=== PATIENT | female | born 1995 | race Caucasian/White ===

== ENCOUNTER 2018-12-26 05:15 | Emergency (ER) | payer OTHER, MEDICAID ==
[~2018-12-26] VITALS: Ht 162.6 cm; Wt 95.1 kg
[~2018-12-26 05:15] MED LIST: ABILIFY20 MG; AMOXICILLIN875 MG PO; BIRTH CONTROL; CELEXA; DULCOLAX5 MG PO; HYOSCYAMINE0.375 M2 PO; IBUPROFEN 600600 M1 PO; LEXAPRO 10 MG T10 M2 PO; MOTION RELIEF25 MG PO; PREDNISONE 20 M20 M1 PO; PROAIR HFA8.5 GM INH; RISPERDAL 1 MG T1 MG; TESSALON PERLE100 MG PO
[2018-12-26 05:24] VITALS: BP 128/71
== END 2018-12-26 05:49 | disposition home or self-care (01) ==
LOC: M.ERS 05:15
DX: M25.521 Pain in right elbow (principal); Z88.2 Allergy status to sulfonamides

== ENCOUNTER 2019-01-12 21:29 | Inpatient (IN) | payer OTHER, MEDICAID ==
[~2019-01-12] VITALS: Ht 162.6 cm; Wt 104.9 kg
[2019-01-12 21:47] VITALS: BP 138/90
[2019-01-13 00:48] LABS: ABSOLUTE BASOPHILS 0.1 thou/uL (0.0-0.2); ABSOLUTE EOSINOPHILS 0.1 thou/uL (0.0-0.7); ABSOLUTE LYMPHOCYTES 1.7 thou/uL (0.8-5.3); ABSOLUTE MONOCYTES 0.7 thou/uL (0.0-1.2); ABSOLUTE NEUTROPHILS 8.8 thou/uL (1.6-8.1); BASOPHILS 0.8 %; HEMATOCRIT 39.8 % (37.0-47.0); HEMOGLOBIN 13.5 gm/dL (12.0-15.0); LYMPHOCYTES 15.1 %; MCH 29.9 pg (26.0-34.0); MCV 87.9 fL (80.0-100.0); MONOCYTES 5.9 %; MPV 8.7 fl. (7.2-11.1); NUCLEATED RBCS 0 /100WBC; PLATELET COUNT* 254 thou/uL (150-400); POLYS 77.2 %; RBC 4.52 mil/uL (4.20-5.00); WBC 11.4 thou/uL (4.0-11.0)
[2019-01-13 00:52] LABS: CALCIUM 9.4 mg/dL (8.5-10.1)
[2019-01-13 00:57] LABS: ALBUMIN 3.6 g/dL (3.4-5.0); TOTAL BILIRUBIN 0.5 mg/dL (<0.1-1.0); TOTAL PROTEIN 7.8 g/dL (6.4-8.2)
[2019-01-13 03:06] VITALS: BP 137/66
[2019-01-13 03:15] VITALS: BP 133/55
[2019-01-13 08:30] VITALS: BP 140/76
[2019-01-13 09:20] LABS: INFLUENZA A ANTIGEN Negative (Negative); INFLUENZA B ANTIGEN Negative (Negative)
[2019-01-13 16:00] VITALS: BP 150/91
--- NOTE | 2019-01-13 17:18 | NUR ---
PATIENT RESTING IN BED. PATIENT IS UP AD DAMARIS IN ROOM. PATIENT UPSET THIS AFTERNOON THAT SHE STILL FEELS SHORT OF BREATH AND IS PAINFUL TO TAKE DEEP BREATHS, DR GUTIERREZ NOTIFIED AND ORDERS RECEIVED. PATIENT REASSURED AND ORDERS IMPLEMENTED. PATIENT IS ON ROOM AIR WITH OXYGEN SATS 93-95%. PATIENT HAS FAIR APPETITE. PATIENT DENIES ANY NEEDS AT THIS TIME. CALL LIGHT WITHIN REACH.
[2019-01-14] VITALS: BP 139/95
--- NOTE | 2019-01-14 04:29 | NUR ---
PATIENT SLEPT WELL DURING THIS SHIFT. PT C/O MUSCLES IN CHEST AND STOMACH HURTING FROM COUGHING. TYLENOL W/CODEINE GIVEN AT HS AND TORADOL IV GIVEN LATER. PT WITH MANY QUESTIONS ABOUT HER HEALTH. PT UP TO BATHROOM WITH SLOW STEADY GAIT. RT PUT PT ON O2 @ 3 LITERS PER NASAL CANNULA WHEN PT'S O2 SATS WERE BELOW 90%. PT ABLE TO GET SOME SLEEP WHEN NOT COUGHING. FLUIDS INFUSING PER ORDER. WILL CONTINUE TO MONITOR.
[2019-01-14 08:30] VITALS: BP 152/89
[2019-01-14 11:49] LABS: HEMATOCRIT 36.9 % (37.0-47.0); HEMOGLOBIN 12.5 gm/dL (12.0-15.0); MCH 30.4 pg (26.0-34.0); MCHC 33.7 g/dL (28.0-37.0); MPV 9.1 fl. (7.2-11.1); NUCLEATED RBCS 0 /100WBC; PLATELET COUNT* 285 thou/uL (150-400); RDW-CV 13.2 % (10.5-14.5); WBC 22.6 thou/uL (4.0-11.0)
[2019-01-14 12:00] LABS: CALCIUM 9.4 mg/dL (8.5-10.1); CREATININE 0.9 mg/dL (0.6-1.3); POTASSIUM 4.1 mmol/L (3.5-5.1)
[2019-01-14 12:21] LABS: ABSOLUTE LYMPHOCYTES 0.9 thou/uL (0.8-5.3); ABSOLUTE MONOCYTES 0.2 thou/uL (0.0-1.2); ABSOLUTE NEUTROPHILS 21.5 thou/uL (1.6-8.1); PLATELET ESTIMATE ADEQUATE
[2019-01-14 17:09] VITALS: BP 152/100
--- NOTE | 2019-01-14 17:25 | NUR ---
PATIENT RESTING IN BED. PATIENT HAS HAD COMPLAINTS OF RIB PAIN, TREATED ADEQUATELY WITH FLEXERIL. PATIENT HAS SLEPT MOST OF DAY. PATIENT IS UP AD DAMARIS TO BATHROOM. PATIENT HAS OXYGEN ON AT 3L/NC. PATIENT SEEN BY DR REILLY THIS AM. PATIENT HAS BEEN AGREEABLE TO NEW MEDICATIONS. CHEST X-RAY THIS AM. PATIENT DENIES ANY NEEDS AT THIS TIME. CALL LIGHT WITHIN REACH.
--- NOTE | 2019-01-15 05:58 | NUR ---
PATIENT PLACED ON HIGH FLOW CANNULA AT 12LITERS AT BEGINNING OF SHIFT BY RT. PT'S LUNGS WITH COURSE SOUNDS WITH FINE CRACKLES. FLUIDS DECREASED PER DR ORDER. PT MOVED CLOSER TO NURSES STATION FOR CLOSER OBSERVATION. PT INSTRUCTED TO USE BSC INSTEAD OF WALKING TO BATHROOM SHE NEEDS TO KEEP CANNULA ON AT ALL TIMES. PT FOUND SEVERAL TIMES DURING THE NIGHT WITH CANNULA OFF. SATS AT THIS TIME 88-90%; O2 REPLACED. PT C/O CHEST HURTING (MUSCULAR PAIN) SAYS FLEXERIL HELPS A LOT. PT DENIES NEEDS AT THIS TIME. FREQUENTLY USED ITEMS AND CALL LIGHT WITHIN REACH. SIDERAILS UPX2. WILL CONTINUE TO MONITOR.
--- NOTE | 2019-01-15 08:23 | CON ---
[address] [address] CONSULTATION Name: ANTONIETTA VELEZ Room: [address] IN M.R.#: [id number] Admission: 01/13/19 Attend Phys: Wes Rose MD Discharge: Date of : 97 Report #: [id number] THIS REPORT FOR: //name// CC: [facility] physician/PCP Wes Bass DO Derick Munoz DO DATE OF SERVICE: 01/14/2019 PULMONARY CONSULTATION ATTENDING PHYSICIAN: Derick Munoz DO LOCATION: Room [facility]. INDICATION FOR CONSULTATION: Acute bronchitis, bronchospasm. HISTORY OF PRESENT ILLNESS: The patient is a prior smoker, quit about a year ago with a 3-4-week history of cough, wheezing, and bronchospasm at home. She tried breathing treatments at home with albuterol. She tried xhlb-buv-ipkikha Mucinex with Delsym without any improvement. She had some chest wall pain with cough. The patient has been taking nebulizer treatments off and on for several years, has been on albuterol inhaler, she states most of her life. 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 She denies being in the hospital as far as her asthma, but again has used an inhaler in the past. She could not tell me if she had been on any Medrol Dosepak or anything like that at home, but does take again breathing treatments with albuterol and use an albuterol inhaler. She thinks she may have used either Advair or Symbicort in the past. Again, not sure on the details. She denies any esophageal reflux. She denies any sinus drainage or allergy problems in the past. Her lactic acid was high when she was in here, and her chest x-ray was negative. She was given aggressive IV fluids and has been on steroid breathing treatments. She thinks the albuterol now is making her cough and wheezing worse. She has not tried ipratropium in the past. I was asked to see her. PAST MEDICAL HISTORY: Acute bronchitis and bronchospasm, reactive airways disease. ALLERGIES: SHE HAS ALLERGIES OR INTOLERANCE TO SULFA. OUTPATIENT MEDICATIONS: Included albuterol inhaler p.r.n., was not on montelukast. Currently, as an inpatient, she is on Toradol 30 mg IV q.8 hours and budesonide 0.5 mg inhaled b.i.d., carvedilol 3.125 mg b.i.d., Solu-Medrol 125 mg IV q.8 hours, Pepcid 40 mg IV daily, azithromycin 250 mg daily, [place] [id number] CONSULTATION Name: ANTONIETTA VELEZ Room: [address] IN .R.#: [id number] Admission: 01/13/19 Attend Phys: Wes Rose MD Discharge: Date of : 97 Report #: [id number] and Rocephin IV. She is on oxygen at 3 liters at this time. FAMILY HISTORY: Shows COPD and her grandparents who are smokers, but denies any prior family history of asthma. No history of other premature cardiopulmonary disease or diabetes. SOCIAL HISTORY: Lives at home with her , has a 4-month-old son at home. He is doing well. He was born at 35 weeks. He is again doing quite well at home and is healthy other than the bilateral otitis media with an ear infection. She was on oral contraceptive pills at home. Also, it should be noted other social history, former smoker. She has a 3-pack year history, but again quit prior to being when she was 22 years old. Denies any alcohol or illicit drug use. 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 REVIEW OF SYSTEMS: A 14-point review of systems reviewed and negative except for pertinent positives noted in the HPI. PHYSICAL EXAMINATION: GENERAL: This is a 23-year-old female, in no acute distress. She is somewhat grudgingly gives me her history. There is some eye contact noted. VITAL SIGNS: Blood pressure is 150/80, heart rate is 88, respirations 16, and she is afebrile. She is 5 feet 5 inches tall, weight is 86 kilograms or 188 pounds, and BMI is 32. HEENT: Pharynx is clear. Sinuses are nontender. NECK: Supple without nodes. No increased jugular venous pressure. CHEST: Shows inspiratory and expiratory wheezes bilaterally. She has some chest wall tenderness bilaterally. No definite rib fractures noted. ABDOMEN: Soft, without masses or megaly, has some minimal tenderness around her upper abdomen again from her coughing. EXTREMITIES: No cyanosis, clubbing, or edema. LABORATORY DATA: Hemoglobin is 13; white count 11,400; platelets are 254,000; normal differential. No increase in eosinophilia, repeat is pending. Serology A and B are negative. Influenza A and B screens are negative. Chemistry: Awaiting repeat electrolytes. Her lactic acid was 4 and then it was repeated down to 2.4. D-dimer was shown at 0.38, which is in lower limits of normal. Portable upright chest x-ray was negative on 01/12/2019 and saturation on 3 liters is 95%. IMPRESSION: Acute bronchitis and bronchospasm, most likely viral bronchitis with prolonged course. Need to add some montelukast. Follow up with a repeat CBC. PLAN: Continue on with high dose steroids and [place]. [place] [id number] CONSULTATION Name: ANTONIETTA VELEZ Room: [address] IN [facility].#: [id number] Admission: 01/13/19 Attend Phys: Wes Rose MD Discharge: Date of : 97 Report #: [id number] not like the albuterol. We can go with formoterol and also inhaled budesonide. I would try that twice daily. I told her we would add montelukast, but she will need to be on this for probably a month or two until we get her breathing better. We will continue with Toradol, tramadol, and try and keep her chest wall pain under control. I told her to take several days to get her bronchospasm to resolve and get her cough and wheezing under control and to next time to call sooner and see if we can get her on some oral steroids or other medicines to get her bronchospasm under control. Obviously, in the future full PFTs in 6-8 weeks as an outpatient and she may need an allergy workup also. Thanks again for allowing us to participate in this lady's care. Pulmonary will follow up along with you. <ELECTRONICALLY SIGNED> By: Araceli Curtis MD 01/15/19 0823 [id number] White MD /nt
[2019-01-15 08:48] VITALS: BP 174/86
--- NOTE | 2019-01-15 11:46 | NUR ---
SW met with pt and pt mother. Pt mother answered most of questions and pt did not speak as much. Pt alert. Pt lives at home in and apt with child (4 months old). Pt mother supportive. SW to remain available to assist with safe dc planning if needs arise.
[2019-01-15 16:03] VITALS: BP 164/91
--- NOTE | 2019-01-15 16:38 | 2DMMODE ---
[place] [address] 2 D/M-MODE ECHOCARDIOGRAM Name: ANTONIETTA VELEZ Room: [address] IN [facility]#: [id number] Admission: 01/13/19 Attend Phys: Wes Rose, Discharge: Date of : 97 Date of Service: 01/15/19 1638 Report #: [id number] THIS REPORT FOR: //name// APPROVED REPORT Study performed: 01/15/2019 15:27:25 EXAM: Comprehensive 2D, Doppler, and color-flow Echocardiogram Patient Location: In-Patient Room #: [facility] Status: routine BSA: 1.91 HR: 71 bpm BP: 174/86 mmHg Rhythm: NSR Other Information Study Quality: Excellent Indications hypoxia 2D Dimensions IVSd: 9.61 (7-11mm) LVOT Diam: 21.01 (18-24mm) LVDd: 53.30 mm PWd: 8.37 (7-11mm) Ascending Ao: 28.50 (22-36mm) LVDs: 36.35 (25-40mm) Aortic Root: 28.76 mm Volumes Left Atrial Volume (Systole) LA ESV Index: 31.50 mL/m2 Aortic Valve AoV Peak Hilario.: 1.53 m/s AO Peak Gr.: 9.41 mmHg LVOT Max P.74 mmHg AO Mean Gr.: 5.13 mmHg LVOT Mean P.75 mmHg LVOT Max V: 1.20 m/s AO V2 VTI: 36.79 cm LVOT Mean V: 0.76 m/s MATHIEU (VTI): 2.76 cm2 LVOT V1 VTI: 29.34 cm Mitral Valve E/A Ratio: 1.06 MV Decel. Time: 167.83 ms MV E Max Hilario.: 1.05 m/[place] [address] 2 D/M-MODE ECHOCARDIOGRAM Name: ANTONIETTA VELEZ Room: [address] IN ..#: [id number] Admission: 01/13/19 Attend Phys: Wes Rose, Discharge: Date of : 97 Date of Service: 01/15/19 1638 Report #: [id number] MV PHT: 48.67 ms MVA (PHT): 4.52 cm2 TDI E/Lateral E': 7.00 E/Medial E': 8.08 Medial E' Hilario.: 0.13 m/s Lateral E' Hilario.: 0.15 m/s Pulmonary Valve PV Peak Hilario.: 0.92 m/s PV Peak Gr.: 3.36 mmHg Tricuspid Valve RAP Estimate: 5.00 mmHg TR Peak Gr.: 22.03 mmHg RVSP: 27.00 mmHg PA Pressure: 27.00 mmHg Left Ventricle The left ventricle is normal size. There is normal LV segmental wall motion. There is normal left ventricular wall thickness. Left ventricular systolic function is normal. The left ventricular ejection fraction is within the normal range. LVEF is 55-60%. Right Ventricle The right ventricle is normal size. The right ventricular systolic function is normal. Atria Left atrium is mildly dilated. The right atrium size is normal. Aortic Valve The aortic valve is normal in structure. No aortic regurgitation is present. There is no aortic valvular stenosis. Mitral Valve The mitral valve is normal in structure. Mild mitral regurgitation. No evidence of mitral valve stenosis. Tricuspid Valve The tricuspid valve is normal in structure. Trace tricuspid regurgitation. estimated pa pressure 25 mm hg Pulmonic Valve The pulmonary valve is normal in structure. Trace [place]mon[place] [address] 2 D/M-MODE ECHOCARDIOGRAM Name: ANTONIETTA VELEZ Room: [address] IN [facility]#: [id number] Admission: 01/13/19 Attend Phys: Wes Rose, Discharge: Date of : 97 Date of Service: 01/15/19 1638 Report #: [id number] Great Vessels The aortic root is normal in size. IVC is normal in size and collapses >50% with inspiration. Pericardium There is no pericardial effusion. <Conclusion> Left ventricular systolic function is normal. The left ventricular ejection fraction is within the normal range. <ELECTRONICALLY SIGNED> By: Young Odell MD, FACC 01/15/19 1638 [id number] [id number] Young Odell MD, FACC /INF
--- NOTE | 2019-01-15 18:32 | NUR ---
0940 [place] NOTIFIED RN OF PATIENT COMPLAINTS. COMPLAINT RESOLVED WITH [place] PATIENT EXPERIENCE INDIAN NANNY, JULIET MANUFACTURING APPLICATIONS ENGINEER, AND RT. PATIENT AMBULATING WITH STAND BY ASSISTANCE TO COMMODE THROUGHOUT SHIFT. ALL SAFETY MEASURES MAINTAINED. NO FURTHER NEEDS AT THIS TIME. O2 SATURATION MAINTAINED ON 40 LPM.
[2019-01-15 19:30] VITALS: BP 139/85
[2019-01-15 21:00] VITALS: BP 157/69
[2019-01-16 05:14] LABS: HEMATOCRIT 39.5 % (37.0-47.0); HEMOGLOBIN 13.4 gm/dL (12.0-15.0); MCH 29.6 pg (26.0-34.0); MCHC 33.9 g/dL (28.0-37.0); MCV 87.4 fL (80.0-100.0); MPV 8.5 fl. (7.2-11.1); RBC 4.52 mil/uL (4.20-5.00); RDW-CV 12.8 % (10.5-14.5)
[2019-01-16 05:41] LABS: ALBUMIN 2.9 g/dL (3.4-5.0); CALCIUM 9.1 mg/dL (8.5-10.1); CREATININE 0.9 mg/dL (0.6-1.3); MAGNESIUM 2.1 mg/dL (1.8-2.4); POTASSIUM 3.9 mmol/L (3.5-5.1); TOTAL BILIRUBIN 0.4 mg/dL (<0.1-1.0); TOTAL PROTEIN 6.9 g/dL (6.4-8.2)
--- NOTE | 2019-01-16 06:49 | NUR ---
PT ALERT AND ORIENTED. VSS ON 12L HFC. ASSESSMENT DOCUMETNED. MEDS GIVEN PER EMAR. PT CAN GET ANXIOUS AT TIMES. LUNGS WHEEZY. PT SAID SHE DID NOT GET MUCH SLEEPT. RT ORDERED. CALL LIGHT WITHIN REACH. HOURLY ROUNDINGS MADE. WILL CONTINUE PLAN OF CARE.
[2019-01-16 09:06] VITALS: BP 168/113
[2019-01-16 12:04] VITALS: BP 148/95
[2019-01-16 16:00] VITALS: BP 167/101
--- NOTE | 2019-01-16 17:33 | NUR ---
PT ARRIVED TO UNIT VIA BED AROUND 1140 TO ROOM 224- DX: LACTIC ACIDOSIS WITH INTRACTABLE COUGH/FEVER- PRINTING SHOP SUPERVISOR PLACED ORDERED, TRACING SR-SBA WITH TRANSFERS- CONTINENT OF B/B- COURSE LUNG SOUNDS WITH NOTED WHEEZING- NON-PRODUCTIVE COUGH NOTED- IV NOTED TO RIGHT FA INTACT AND SL- IV LASIX 40MG X1 GIVEN AT TIME OF TRANSFER PRESCRIBED- VS 97.9 20 148/95 86 97% ON 12 HF O2- ABD SOFT/ROUND/NON-TENDER, BS X4 QUADS- LAST BM REPORTED 01/15/19- VENOUS US ORDERED THIS SHIFT WITH RESULTS NOTED TO BE NEGATVE FOR DVT- TRACE EDEMA NOTED TO BLE- SCHEDULED XANAX GIVEN PRESCIBED- SCHEDULED TORADOL PRESCRIBED R/T INTERCOSTAL PAIN- CALL LIGHT AND PERSONAL BELONGINGS WITH IN REACH- HOURLY ROUNDS IN PLACE R/T SAFETY/NEEDS- PT MAKES NEEDS KNOWN- ALL NEEDS MET AT THIS TIME-WCTM
[2019-01-16 20:00] VITALS: BP 135/75
[2019-01-17 00:35] VITALS: BP 127/72
[2019-01-17 04:00] VITALS: BP 144/82
--- NOTE | 2019-01-17 05:10 | NUR ---
PT HAS LOTS OF QUESTIONS CONCERNING TX AND CARE, PROVIDED EDUCATION. C/O PAIN TO CHEST RELIEVED BY SCHEDULE PAIN MEDICATION. NO OTHER CONCERNS NOTED AT THIS TIME, PT ABLE TO SLEEP MAJORITY OF SHIFT. CURRENTLY RESTING IN BED WITH CALL LIGHT WITHIN REACH.
[2019-01-17 05:38] LABS: HEMATOCRIT 41.1 % (37.0-47.0); HEMOGLOBIN 13.8 gm/dL (12.0-15.0); MCH 29.7 pg (26.0-34.0); MCHC 33.6 g/dL (28.0-37.0); MCV 88.3 fL (80.0-100.0); MPV 8.5 fl. (7.2-11.1); RBC 4.65 mil/uL (4.20-5.00); RDW-CV 13.3 % (10.5-14.5); WBC 19.8 thou/uL (4.0-11.0)
[2019-01-17 06:22] LABS: ALBUMIN 2.8 g/dL (3.4-5.0); CALCIUM 8.4 mg/dL (8.5-10.1); MAGNESIUM 2.2 mg/dL (1.8-2.4); POTASSIUM 3.7 mmol/L (3.5-5.1); TOTAL BILIRUBIN 0.5 mg/dL (<0.1-1.0); TOTAL PROTEIN 6.5 g/dL (6.4-8.2)
[2019-01-17 07:36] VITALS: BP 144/90
--- NOTE | 2019-01-17 08:25 | NUR ---
ASSUMED CARE OF PT THIS AM AROUND 0715- VELVET WEAVER IN PLACE ORDERED, TRACING SR/SB- UPON ASSESSMENT PT NOTED TO BE SLEEPING AND HARD TO ARROUSE THIS AM, SCHEDULED XANAX HELD THIS AM R/T SB AND SOMULENCE- PT A&O X4, VELAZQUEZ- STATES "WHAT ARE MY RESULTS OF MY TESTING, NO ONE TELLS ME ANYTHING"- RESULTS OF RECENT TESTING COMMUNICATED TO PT PER THIS NURSE THIS AM, WITH ASSURANCE THAT PHYSICIAN WOULD BE ROUNDING TO ANSWERING ANY FURTHER QUESTIONS- CONTINENT OF B/B- UP AD-DAMARIS IN ROOM, STEADY GAIT NOTED- COURSE/RHONCHI LUNG SOUNDS NOTED WITH WHEEZING- CONGESTED COUGH NOTED WITH POOR COUGH EFFORT, MORNING TUSSINEX HELD-VSS, O2 SAT 98% ON 40L HF HEATED O2 WITH 50%FI02, RESP REPORTED TO TRY TO DECREASE/CHANGE TO REGULAR HF THIS AM, BUT PT REPORTED TO NOT BE ABLE TO BREATH WELL AND RESISTANT DESPITE GOOD O2 SAT PER RESP- ABD SOFT/ROUND/NON-TENDER, BS X 4 QUADS- LAST BM REPORTED 01/16/19- IV NOTED TO RIGHT FA INTACT, IV ABT GIVEN THIS AM PRESCIBED- CALL LIGHT AND PERSONAL BELONGINGS WITH IN REACH- HOURLY ROUNDS IN PLACE R/T SAFETY/NEEDS- ALL NEEDS MET AT THIS TIME-WCTM
--- NOTE | 2019-01-17 11:22 | CON ---
[address] [address] CONSULTATION Name: ANTONIETTA VELEZ Room: [address] IN M.R.#: [id number] Admission: 01/13/19 Attend Phys: Wes Rose MD Discharge: Date of : 97 Report #: [id number] THIS REPORT FOR: //name// CC: [facility] physician/PCP Wes Rose DATE OF SERVICE: 01/16/2019 INFECTIOUS DISEASE CONSULTATION ATTENDING PHYSICIAN: Wes Rose MD REASON FOR EVALUATION: Severe pneumonitis, complicated by respiratory failure, possible radiographic evidence of ARDS. HISTORY OF PRESENT ILLNESS: Chart reviewed, patient examined. This 23-year-old otherwise healthy woman who is actually , having delivered in 08/2018, presented on 01/13/2019, several days prior to that had what appeared to be a lower respiratory tract inflammatory process felt to be bronchitis. She has these frequently on an annual basis about this time of year associated cough, some dyspnea, was producing yellow to green sputum. Denies any fevers. Did have some sweats and chills. Appetite has been somewhat diminished as well. She was evaluated including chest x-ray initially, which was unremarkable. Influenza antigen was negative. Viral panel is pending. Lactic acid was elevated at 4.2, has been consistently elevated, most recently had decreased to 2.4. Chest x-ray, however, progressed, now shows diffuse interstitial pneumonitis. Chest CT done within the last 24 hours showed diffuse pneumonitis, opacifying the central and posterior aspect of the right lung, moderate infiltrates. BNP was elevated at 1403 and chest x-ray this morning raised question of ARDS. She is lucid, is requiring a high-flow supplemental oxygen by mask at this point. Denies any particular exposure history. 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 No evidence of overt illness among the children at this point. ALLERGIES: TO SULFA. CURRENT MEDICATIONS: Include levalbuterol, methylprednisolone, hydrocodone, alprazolam, albuterol, budesonide, famotidine, azithromycin and ceftriaxone. PAST MEDICAL HISTORY: Apparently unremarkable with delivery. SOCIAL HISTORY: She is single, nonsmoker, no ethanol, no illicit drug use. FAMILY HISTORY: Otherwise[place] [address] CONSULTATION Name: ROSIEANTONIETTA M Room: [address]#: [id number] Admission: 01/13/19 Attend Phys: Wes Rose MD Discharge: Date of : 97 Report #: [id number] REVIEW OF SYSTEMS: A 10-point review of systems except noted above in history of present illness. PHYSICAL EXAMINATION: GENERAL: She appears quite ill. She is lucid. She has a mask in place, reasonably well nourished. VITAL SIGNS: Temperature 97.9, pulse 74, respirations 22, blood pressure 170/113. SKIN: Warm, dry. No rashes. NECK: Supple. HEENT: Extraocular muscles intact. LUNGS: Few scattered coarse breath sounds. HEART: Regular. I do not appreciate any murmur. ABDOMEN: Mildly distended, soft. It is nontender. GENITOURINARY: Deferred. RECTAL: Deferred. LABORATORY DATA: Most recent lactic acid 2.4. Chest x-ray describes this morning as worsening pulmonary venous congestion, perihilar and basilar infiltrates, question ARDS. Electrolytes: Sodium 140, potassium 3.9, chloride 104, bicarbonate is 26, anion gap of 10, BUN and creatinine 25 and 0.9, glucose of 137. LFTs unremarkable. Albumin 2.9, total protein 6.9. ProBNP of 1403. CRP of less than 2. CBC: White count of 21, H and H 13.4 and 39.5, platelets of 312. ASSESSMENT AND PLAN: Severe pneumonitis. This may well be a biphasic illness, developed a lower respiratory tract infection, possibly viral, perhaps complicated by secondary bacterial pneumonia with capillary leak syndrome. Will continue antibiotics and it is a reasonable coverage. Monitor expectantly. Certainly if would deteriorate, may need intubation. Certainly at that point, we do bronchoscopy. At this point, there is no evidence of cardiomyopathy, may just be excess fluid that may be amenable to diuresis. Will initially to do additional diagnostic testing to look for immunocompromised situation. She is having HIV that was negative during her . Did discuss with the patient and her mother. Will follow expectantly. <ELECTRONICALLY SIGNED> By: Andre Parmar MD 01/17/19 1122 [id number] 1230Andre Parmar MD /nt
[2019-01-17 12:14] VITALS: BP 125/89
--- NOTE | 2019-01-17 16:11 | NUR ---
PT CURRENTLY RESTING IN BED-CLINICAL NURSE MANAGER IN PLACE ORDERED, TRACING SB/SR- IV TO RIGHT FA INTACT AND SL- GOOD PO INTAKE NOTED THIS SHIFT WITH MEALS- PT ENCOURAGED TO GET UP TO BED SIDE CHAIR THIS SHIFT, AND NOTED TO BE UP WITH LUNCH THIS SHIFT- IS ENCOURAGED- MACKENZIE HELD THIS SHIFT R/T SB AND DROWSINESS- PT ENCOURAGED TO GET UP AND SHOWER, BUT REFUSED THIS SHIFT- CALL LIGHT AND PERSONAL BELONGINGS WITH IN REACH- HOURLY ROUNDS IN PLACE R/T SAFETY/NEEDS- ALL NEEDS MET AT THIS TIME-WCTM
[2019-01-17 16:22] VITALS: BP 165/95
[2019-01-17 20:00] VITALS: BP 138/99
[2019-01-17 23:08] LABS: MYCOPLASMA PNEUMONIA IgG <100 U/mL (0-99)
[2019-01-18] VITALS: BP 175/89
[2019-01-18 04:00] VITALS: BP 143/85
--- NOTE | 2019-01-18 05:09 | NUR ---
PT CARE ASSUMED AT 1930. SAT MAINTAINED IN HEATED OPTIFLOWMETER. ALERT AND ORIENTED X4. C/O PAIN, MEDICATION GIVEN PER EMAR. CALL LIGHT WITHIN REACH AND BED IN LOW POSITION. HOURLY ROUNDING DONE FOR PT SAFETY.
[2019-01-18 08:08] VITALS: BP 154/85
[2019-01-18] MEDS ORDERED: CARVEDILOL12.5 MG PO (10:46)
[2019-01-18 11:14] LABS: CALCIUM 8.3 mg/dL (8.5-10.1); CREATININE 0.9 mg/dL (0.6-1.3); POTASSIUM 3.9 mmol/L (3.5-5.1)
--- NOTE | 2019-01-18 11:17 | NUR ---
ASSUMED CARE AFTER REPORT APPROX 0730. OX4, ABLE TO COMMUNICATE NEEDS TO STAFF. VS OBTAINED. ASSESSMENT COMPLETE, DOCUMENTED BY CARDIOGRAPH OPERATOR. THIS NURSE IN AGREEMENT WITH ASSESSMENT DOCUMENTED. EDUCATION GIVEN R/T IV MEDICATION TO TREAT INFECTION. PATIENT EXPRESSED AGREEMENT TO PLAN OF CARE. PATIENT STATES "I JUST FEEL SO WEAK." EDUCATION GIVEN TO SIDE EFFECTS OF MEDICATIONS AND INFECTION. PATIENT NODDED IN ACKNOWLEDGEMENT. CALL LIGHT WITHIN REACH. HOURLY ROUNDING FOR SAFETY AND PATIENT NEEDS.
[2019-01-18 11:51] VITALS: BP 136/99
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
--- NOTE | 2019-01-18 15:43 | NUR ---
ASSUMED CARE AFTER REPORT APPROX 0730. OX4, ABLE TO COMMUNICATE NEEDS TO STAFF. VS OBTAINED, WNL. ASSESSMENT COMPLETE. HUMIDIFIED OXYGEN VIA HFC, 40%. RFA IV PATENT, SL. CALL LIGHT IN REACH. AGREEABLE TO STUDENT NURSE INVOLVEMENT IN CARE.
[2019-01-18 20:00] VITALS: BP 160/89
[2019-01-18 23:10] LABS: ADENOVIRUS Negative (Negative); INFLUENZA A Negative (Negative); INFLUENZA B Negative (Negative); METAPNEUMOVIRUS Negative (Negative); PARAINFLUENZA 1 Negative (Negative); PARAINFLUENZA 2 Negative (Negative); PARAINFLUENZA 3 Negative (Negative); RHINOVIRUS Positive (Negative); RSV A Negative (Negative); RSV B Negative (Negative)
[2019-01-18 23:10] LABS: MYCOPLASMA PNEUMONIA IgM <770 U/mL (0-769)
[2019-01-19] VITALS: BP 158/89
--- NOTE | 2019-01-19 06:01 | NUR ---
PT CARE ASSUMED AT 1930. SAT MAINTAINED IN HEATED OPTIFLOWMETER. PT IS TEARFUL AND ANXIOUS. C/O PAIN, MEDICATION GIVEN PER EMAR. SOB WITH EXERTION. CALL LIGHT WITHIN REACH AND BED IN LOW POSITION. HOURLY ROUNDING DONE FOR PT SAFETY.
[2019-01-19 07:29] VITALS: BP 139/82
--- NOTE | 2019-01-19 10:00 | NUR ---
PATIENT UPSET AND CRYING. PATIENT EXPRESSING FRUSTRATION ABOUT BEING IN THE HOSPITAL AND NOT BEING ABLE TO SEE HER CHILD. PATIENT STATES, "I FEEL SO WEAK." PATIENT STATES, "I WANT TO GO HOME SO THAT i CAN DO THINGS THAT I HAVE TO GET DONE." PROVIDED THERAPEUTIC COMMUNICATION TECHNIQUE: LISTENING.
[2019-01-19] MEDS ORDERED: MUCINEX600 MG PO (11:08)
[2019-01-19] MEDS ORDERED: CYCLOBENZAPRINE10 MG PO (11:08)
[2019-01-19] MEDS ORDERED: XANAX 0.25 MG0.25 MG PO (11:08)
[2019-01-19] MEDS ORDERED: BENZONATATE100 MG PO (11:08)
[2019-01-19] MEDS ORDERED: VENTOLIN HFA 1818 GM INH (11:08)
[2019-01-19] MEDS ORDERED: PREDNISONE 10 M10 MG PO (11:08)
[2019-01-19] MEDS ORDERED: SINGULAIR 10 MG10 M1 PO (11:08)
--- NOTE | 2019-01-19 12:00 | NUR ---
ASSUMED CARE AFTER REPORT APPROX 0730. OX4, ABLE TO EXPRESS NEEDS TO STAFF. ANXIOUS ABOUT STAYING IN HOSPITAL AND ANXIOUS ABOUT POSSIBLY GOING HOME. ANSWERING PT'S QUESTIONS SHE PRESENTS THEM. EDUCATION PROVIDED R/T PLAN OF CARE, MEDICATIONS THAT WILL CHANGE FROM IV TO ORAL ANTIBIOTICS. NEEDS REINFORCING. ANXIETY AND FAMILY DYNAMICS ARE COMMUNICATION BARRIERS. PATIENT IN AGREEMENT TO HAVE RETAINING ROOM CUTTER PROVIDE CARE. IN AGREEMENT WITH STUDENT NURSE'S DOCUMENTED ASSESSMENT. CALL LIGHT IN REACH.
--- NOTE | 2019-01-19 12:30 | NUR ---
PATIENT IN AGITATED STATE, THROWING THINGS IN ROOM. PATIENT STATES "I DON'T KNOW WHY PEOPLE CAN'T COMMUNICATE." PATIENT APPEARS UPSET THAT DISCHARGE PROCESS IS TAKING SO LONG. EDUCATED PATIENT ABOUT TEST ORDERED TO DETERMINE OXYGEN NEEDS POST-DISCHARGE. PATIENT STATES, "I JUST WANT TO UNDERSTAND WHY THIS HAS TO BE THIS WAY." EDUCATED PATIENT ABOUT DISCHARGE PROCESS. NEEDS REINFORCEMENT TEACHING.
[2019-01-19 12:35] VITALS: BP 163/99
--- NOTE | 2019-01-19 13:24 | NUR ---
Nutrition: Pt admitted with lactic acidosis, possibly R/T heavy breathing/cough/rhinovirus. On solumedrol. Labs: lactic acid 4.1, albumin 2.8, prealb 39.9, BG 123. Pt was busy at time of attempted visit, 12:10. Seen for LOS. Wt is recorded as 231#, but is likely closer to 200#, per [facility]. Appears at low to mild risk at this time.
[2019-01-19] MEDS ORDERED: RAYOS5 MG PO (15:27)
[2019-01-19] MEDS ORDERED: IBUPROFEN200 M1 PO (15:33)
[2019-01-19] MEDS ORDERED: MAPAP500 M1 PO (15:42)
[2019-01-19] MEDS ORDERED: PROAIR HFA8.5 GM INH (15:43)
[2019-01-19 16:05] VITALS: BP 163/99
[2019-01-19] MEDS ORDERED: CEFDINIR300 MG PO (16:16)
[2019-01-19 16:50] VITALS: BP 146/103
--- NOTE | 2019-01-19 18:30 | NUR ---
REVIEWED DC ORDER AND MEDICATION LIST WITH PATIENT. ANSWERED PATIENT QUESTIONS TO PATIENT SATISFACTION. GAVE PATIENT WORK RELEASE NOTE FROM PHYSICIAN. PATIENT WANTS A SPECIFIC NOTE WITH FURTHER DETAILS ABOUT HER HOSPITAL STAY. REVIEWED WITH PATIENT HER DIAGNOSIS AND TREATMENT PLAN. REFERRED PATIENT TO MEDICAL RECORDS FOR FURTHER DOCUMENTATION OF HER STAY. IV DC'D AND SURFACE GRINDER TENDER REMOVED, CLEANED AND REPLACED IN POCKET FOR ROOM 224. PATIENT IN POSSESSION OF ALL BELONGINGS. PATIENT IN PHONE CONVERSATION WITH FAMILY ABOUT TRANSPORTATION HOME. PATIENT STATES "I WILL JUST DRIVE MY CAR HOME. MY MOM THINKS I CAN JUST DO EVERYTHING NOW THAT I'M BEING RELEASED FROM THE HOSPITAL." SPOKE WITH PATIENT'S GRANDMOTHER ON PATIENT'S PHONE WHILE AT PATIENT'S REQUEST TO ADVOCATE FOR SUPPORTIVE CARE FOR PATIENT. PATIENT'S GRANDMOTHER STATES "SHE HAS BEEN DEMANDING RELEASE ALL DAY AND NOW WANTS US TO JUMP UP AND BRING HER HOME AT 6:30 PM." ADVOCATED FOR SUPPORTIVE CARE POST DC FOR PATIENT. PATIENT CONTINUING TO ARGUE WITH FAMILY MEMBERS VIA TELEPHONE.
== END 2019-01-19 18:45 | disposition home or self-care (01) | DRG 177 ==
LOC: M.ERS 21:29 → M.TBA-ER 01-13 02:07 → M.3W 01-13 02:07 → M.2W 01-16 11:39
PROVIDERS: Internal Medicine; Internal Medicine Pulmonary Disease; Personal Emergency Response Attendant; ADMIT Internal Medicine
DX: J69.0 Pneumonitis due to inhalation of food and vomit (principal); J96.21 Acute and chronic respiratory failure with hypoxia; E87.2 Acidosis; E86.0 Dehydration; E87.6 Hypokalemia; J45.909 Unspecified asthma, uncomplicated; J20.9 Acute bronchitis, unspecified; J06.9 Acute upper respiratory infection, unspecified; I10 Essential (primary) hypertension; Z53.29 Procedure and treatment not carried out because of patient's decision for other reasons; F41.9 Anxiety disorder, unspecified; Z88.2 Allergy status to sulfonamides; Z79.51 Long term (current) use of inhaled steroids; Z79.899 Other long term (current) drug therapy; Z82.5 Family history of asthma and other chronic lower respiratory diseases; Z87.891 Personal history of nicotine dependence